=== PATIENT | female | born 2000 ===

== ENCOUNTER 2023-02-04 21:06 | Outpatient (REF) | payer OTHER, SELFPAY ==
[2023-02-13 22:06] LABS: HPV Aptima Positive (Negative); HPV Genotype 16 Negative (Negative); HPV Genotype 18,45 Negative (Negative); Pap IG (Image Guided) Note (.)
== END 2023-02-04 21:07 | disposition home or self-care (01) ==
LOC: LAB 21:06
PROVIDERS: Visit Provider Obstetrics & Gynecology
DX: R87.610 Atypical squamous cells of undetermined significance on cytologic smear of cervix (ASC-US) (principal)
CPT/HCPCS: G0145